=== PATIENT | male | born 1980 ===

== ENCOUNTER → 2020-06-28 09:15 | Outpatient (BNVA) | payer OTHER, SELFPAY | PROVIDERS: PCP Internal Medicine; Visit Provider Urology | DX: R39.12 Poor urinary stream (principal) | CPT/HCPCS: 81002; 99202 ==

== ENCOUNTER → 2020-09-27 16:25 | Outpatient (BNVA) | payer OTHER, SELFPAY | PROVIDERS: PCP Internal Medicine; Visit Provider Urology | DX: N41.9 Inflammatory disease of prostate, unspecified (principal); R39.12 Poor urinary stream | CPT/HCPCS: 99212 ==